=== PATIENT | female | born 1995 ===

== ENCOUNTER → 2017-12-09 | Outpatient (CLI) | payer OTHER ==
--- NOTE | 2017-12-09 14:50 | Diagnostic Imaging Report ---
PROCEDURE: US OB SINGLE FETUS <14 WKS. TECHNIQUE: Multiple real-time grayscale images were obtained over the gravid uterus in various projections. INDICATION: Dating. FINDINGS: There is an intrauterine gestational sac containing a pole. Cheval-rump length measurement is 20 mm consistent with 8 weeks 5 days gestation. heart rate was recorded at 172 beats per minute. No rachna-gestational sac hemorrhage is identified. The ovaries were not visualized. No adnexal mass or free fluid is seen. IMPRESSION: Single live IUP at 8 weeks 5 days gestational age. Estimated date of confinement sonographically is 07/16/2018. Dictated by: Dictated on workstation # [id number]
== END ==
LOC: RAD 14:02
PROVIDERS: ATTEND Family Medicine
DX: Z34.91 Encounter for supervision of normal pregnancy, unspecified, first trimester (principal); Z3A.08 8 weeks gestation of pregnancy
CPT/HCPCS: 76801